=== PATIENT | male | born 1970 | race Caucasian/White ===

== ENCOUNTER 2020-06-30 11:00 | Outpatient (RCR) | payer BC, SELFPAY ==
--- NOTE | 2020-06-30 13:03 | PTOPEVAL ---
Thank you for referring Kane Driscoll to [facility]. Please review, sign, date and return this plan of care AMBERLY. I agree with and certify that the following plan of care is medically necessary. Referring Physician Date Admitting Provider: Attending Provider: Adrianna Rees, PLANT SUPERVISOR Referring Provider: *PT Outpatient Evaluation Start: 06/30/20 11:06 Freq: Status: Active Protocol: Document 06/30/20 11:06 BRIAN (Rec: 06/30/20 11:57 BRIAN [email or web address]) Therapy Assessment Status Assessment Status Assessment Status Evaluation Evaluation Information Problem Diagnosis PFS, trochanteric bursitis, sprained LCL, left knee Onset 06/25/20 Subjective Information Pt. reports that he recalls no Query Text:As Reported By Patient/ speicific injury to the knee Family and hip. He states that on/ off pain stared about 2 years ago after having to do alot of stairs. He reports that he has been home as of recently. He states that doing work around the home he has noticed increasing pain in the front of the knee. He has undergone xray and MRI which revealed sprain of the LCL. He states that he does have arthritis in the knee as well. He reports that he has been developing hip pain as of recently on the left side. He reports that his goal is to develop an exercise program to help reduce his pain. Diagnostic Tests X-Rays For This Problem Yes MRI For This Problem Yes Pain Assessment Pain Scale Pain Scale Used Numeric (1 - 10) Self Report Pain Assessment Left Hip(s) Reported Pain Level 2 Pain Description Aching Pain Frequency Continuous Lowest Pain Intensity 1 Greatest Pain Intensity 2 Left Knee(s) Reported Pain Level 3 Pain Description Aching Pain Frequency Continuous Lowest Pain Intensity 3 Greatest Pain Intensity 7 Pain Aggravating Factors Exercise/Activity,Lifting, Stair Climbing,Weight Bearing/ Standing Pain Score Pain Score 3,2: Self Report Interventio
== END 2020-06-30 14:16 | disposition home or self-care (01) ==
LOC: CHSPT 11:00
PROVIDERS: Visit Provider Nurse Practitioner Family
DX: M70.62 Trochanteric bursitis, left hip (principal); S83.422D Sprain of lateral collateral ligament of left knee, subsequent encounter; M22.2X2 Patellofemoral disorders, left knee; M17.12 Unilateral primary osteoarthritis, left knee
CPT/HCPCS: 97110; 97161

== ENCOUNTER 2020-11-10 09:56 | Outpatient (RCR) | payer BC, MEDICAID, SELFPAY ==
--- NOTE | 2020-11-10 17:39 | PTOPEVAL ---
Thank you for referring Kane Driscoll to [facility].? The patient is scheduled to be seen for therapy? __3__x/week for 12 visits. Please review, sign, date and return this plan of care AMBERLY. I agree with and certify that the following plan of care is medically necessary. Referring Physician Date Admitting Provider: Attending Provider: Adrianna Rees, CAPTION WRITER Referring Provider: *PT Outpatient Evaluation Start: 11/10/20 09:55 Freq: Status: Active Protocol: Document 11/10/20 09:58 BRIAN (Rec: 11/10/20 10:35 BRIAN [email or web address]) Therapy Assessment Status Assessment Status Assessment Status Evaluation Evaluation Information Problem Diagnosis patellofemoral syndrome of the left knee Onset 10/30/20 Subjective Information Pt. reports increase in pain Query Text:As Reported By Patient/ about 2 weeks ago. He recalls Family no incident that caused his left knee pain. He reports that most pain is located in the back of the left knee. He does get pain into the calf and into the thigh. He was given a prednisone dose pack, with has helped. He states that he still has pain in the front of the left knee. He notes pain is caused with doing steps and squatting, as well as walking. Pt. has had an MRI within the year, but does not recall the results. He states that he enjoys yard work, but cannot work for more than 1 hour outside due to pain. He reports that his knee pain will decrease with rest. He reports that his goal is to reduce his knee pain with activity. Prior Level of Function Activity Level (Last 3 Months) Occupation off work Hand Dominance Right Activity of Daily Living Ability Independent Indoor/Home Mobility Independent Community Mobility Independent Stairs Ability Independent Functional Cognition (Planning, Shopping Independent , Taking Medications) Cooking Yes Cleaning Yes Laundry Yes Shopping Yes Driving
== END 2021-02-08 23:59 | disposition home or self-care (01) ==
LOC: CHSPT 09:56
PROVIDERS: Visit Provider Nurse Practitioner Family
DX: M22.2X2 Patellofemoral disorders, left knee (principal); R26.89 Other abnormalities of gait and mobility
CPT/HCPCS: 97014; 97110; 97161; G0283

== ENCOUNTER 2021-04-06 14:53 | Outpatient (RCR) | payer OTHER, SELFPAY ==
--- NOTE | 2021-04-06 15:59 | PTOPEVAL ---
Thank you for referring Kane Driscoll to [facility].? The patient is scheduled to be seen for therapy? ____x/week for ___ weeks. Please review, sign, date and return this plan of care AMBERLY. I agree with and certify that the following plan of care is medically necessary. Referring Physician Date Admitting Provider: Attending Provider: Jamin Cullen MD Referring Provider: *PT Outpatient Evaluation Start: 04/06/21 14:55 Freq: Status: Active Protocol: Document 04/06/21 14:58 ACR (Rec: 04/06/21 15:57 ACR [email or web address]) Therapy Assessment Status Assessment Status Assessment Status Evaluation Evaluation Information Problem Diagnosis L knee arthoscopy Onset 12/31/20 Subjective Information Patient reports he got his Query Text:As Reported By Patient/ knee scoped and had his Family meniscus repaired, a quadricep release, and got some arthritis cleaned out. Everything was going fine, but he was on his hands and knees cleaning and when getting up he felt an intense pain. He called the MD and got 50ml drained from the knee and a cortisone shot which has helped him quite a bit. Patient states that he has difficulty with walking on uneven terrain, a sudden turn, sitting/standing for too long and occasionally navigating steps. Patient states his goal for therapy is to get his knee to not hurt when walking on uneven terrain and getting stronger. Prior Level of Function Activity Level (Last 3 Months) Occupation unemployed Hand Dominance Right Activity of Daily Living Ability Independent Indoor/Home Mobility Independent Community Mobility Independent Stairs Ability Independent Functional Cognition (Planning, Shopping Independent , Taking Medications) Cooking Yes Cleaning Yes Laundry Yes Shopping Yes Driving Yes Pain Assessment Timing of Pain Assessment Timing of Pain Assessment Assessment Pain Scale Pain Scale Used Numeric (1 - 10) Self Report Pain Assessment Left Knee(s) Re
--- NOTE | 2021-05-01 14:09 | PTOPEVAL ---
Thank you for referring Kane Driscoll to [facility].? The patient is scheduled to be seen for therapy? ____x/week for ___ weeks. Please review, sign, date and return this plan of care AMBERLY. I agree with and certify that the following plan of care is medically necessary. Referring Physician Date Admitting Provider: Attending Provider: Jamin Cullen MD Referring Provider: *PT Outpatient Evaluation Start: 04/06/21 14:55 Freq: Status: Active Protocol: Document 05/01/21 13:00 [facility] (Rec: 05/01/21 14:08 [facility] [email or web address]) Therapy Assessment Status Assessment Status Assessment Status Discharge Evaluation Information Problem Diagnosis L knee arthoscopy Onset 12/31/20 Additional Evaluation Detail LEFS = 35% Subjective Information patient reports he feels good Query Text:As Reported By Patient/ this date. he reports he has Family mild pain in the L knee. he reports he does start a new job this tuesday. 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 Pain Assessment Timing of Pain Assessment Timing of Pain Assessment Assessment Pain Scale Pain Scale Used Numeric (1 - 10) Self Report Pain Assessment Left Knee(s) Reported Pain Level 4 Pain Score Pain Score 4: Self Report Interventions Used Interventions Used By Clinicians Activity or ADL's,Exercise Lower Extremity Range of Motion Knee Range of Motion Left Knee Flexion Range of Motion - Active 120 Knee Extension Range of Motion - Active 0 Query Text: Lower Extremity Muscle Strength Testing Hip Strength Bilateral Hip Flexion Strength 5 Normal Knee Strength Left Knee Flexion Strength 5 Normal Knee Extension Strength 5 Normal Ankle Strength Left Ankle Dorsiflexion Strength 5 Normal Ankle Plantarflexion Strength 5 Normal Gait Assessment Gait Pattern Assessment Other Gait Observations normal step/stride length toe in stance/mechanics Stair Climbing Assessment Stair Climbing Assessment Stair Climbing Comments up and down 1 flight, reciprocal mechanics with 1 hand rail hold General Exercise General Exercises Exercise Description - nustep level 5, 10 minutes Query Text:Record Sets, Reps, - heel/toe raises x 30 Resistance, and Position - hip abduction x 30 B - hip extension x 30 B - alternating lunges x 25 - squats x 25
== END 2021-05-01 14:29 | disposition home or self-care (01) ==
LOC: CHSPT 14:53
PROVIDERS: PCP Nurse Practitioner Family; Visit Provider Internal Medicine Infectious Disease
DX: M23.52 Chronic instability of knee, left knee (principal)
CPT/HCPCS: 97014; 97110; 97140; 97161; 97530; G0283

== ENCOUNTER 2022-10-18 12:57 | Outpatient (RCR) | payer BC, SELFPAY ==
--- NOTE | 2022-10-18 13:57 | PTOPEVAL1 ---
Assessment and note entered by Evelia Gibbons DPT Evaluation Information Assessment Status Evaluation Diagnosis low back pain, L hip pain Onset 10/15/22 Subjective Information Patient reports he was having L hip pain that started at the endof the last year. He reports he got an injection about a month ago but reports he did not get relief from that. He then got a back MRI that showed an intradural mass, stenosis, and spondylosis. He reports that pain is in the low back with a pinch and reports his hip pain does radiate down the L LE with numbness about 25% of the time. Patient reports pain is worse with stair navigation, sleeping and standing for prolonged periods of time. Reported Pain Level Pain Score 1,0: Self Report Assessment PT Clinical Summary Patient is a 52 year old male who presents to PT with low back and L hip pain. Patient demonstrates decreased lumbar mobility, decreased LE flexibility and decreased LE strength impairing his ability to navigate stairs, ambulate prolonge periods and sleeping without pain. He would benefit from skilled PT to address impairments and return to PLOF. Plan of Care Interventions Electrical Stimulation,Gait Training,Hot Pack/Cold Pack,Manual Therapy,Mechanical Traction,Neuro Re- education,Patient/Caregiver Educati,Therapeutic Activities,Therapeutic Exercise PT Services Indicated Yes Treatment Frequency and 2x weekly for 12 visits Duration These treatments will address the objective and functional deficits as defined above. The patient will be advanced safely and appropriately in order for the patient to progress towards his/her prior level of function. Additional exercises will be introduced and as well as a comprehensive home exercise program upon discharge, if needed, ?to ensure carryover of functional gains achieved in the clinic. This treatment plan has been reviewed and agreement upon by the patient.
== END 2022-11-18 16:26 | disposition home or self-care (01) ==
LOC: CHSPT 12:57
DX: M47.816 Spondylosis without myelopathy or radiculopathy, lumbar region (principal); M99.63 Osseous and subluxation stenosis of intervertebral foramina of lumbar region
CPT/HCPCS: 97014; 97110; 97112; 97161; G0283

== ENCOUNTER 2024-02-13 13:49 | Outpatient (RCR) | payer BC, SELFPAY ==
--- NOTE | 2024-02-13 14:46 | PTOPEVAL1 ---
Assessment and note entered by [facility] Evaluation Information Assessment Status Evaluation Diagnosis leg weakness R29.898, ICD-10 Condition Codes (PT) Weakness R53.1 Onset 12/03/23 Subjective Information Pt. reports that mid November he was in [place] and was in the shower and felt a pinch in his hip. He reports that pain worsened and went to urgent care . He reports that he returned home, but pain got more intense and went back to the ER. He states that several weeks after the initial injury, he felt another pop in the front of the right thigh. He reports that he went to the hospital via ambulance, and was admitted. He reports that he was then sent to his back doctor and underwent a surgery to remove a mass from his spine on 12/21/23 . He reports that he was hospitalized for 1 week after surgery. He reports that shortly after returning home his incision had busted open and he was leaking spinal fluid. He reports that he underwent a second surgery to repair the original incision. He states that he has had right leg weakness since surgery and constant shooting pain in the right upper thigh. He states that enjoys yard work, but cannot cut his lawn fully due to feeling unsteady on his right leg. He reports that he has a sense that the right leg is going to give out. He states that his most difficult terrain is grass and navigating steps. He cannot lead up steps with the right leg. He states that he can only stand about 5 minutes before he gets increased pain in the right leg. He states that he cannot sleep efficiently due to pain. He reports that his goal is to reduce his pain and improve the strength in the right leg. Reported Pain Level Pain Score 3: Self Report Assessment PT Clinical Summary Pt. is a 54 year old male who enters the clinic with low back pain and developed right l.e. weakness post surgically. He presents with indication of muscle strain to the right thigh, in addition to lumbar radiculopathy affecting the right l.e. He currently presents with impaired gait, impaired l.e. strength, pain, impaired flexibility and functional decline. Continued skilled PT is indicated in order to improve these areas to allow the pt. to be able to improve IADL performance. Plan of Care Interventions Deepthi
--- NOTE | 2024-02-13 15:04 | OPREHPOC ---
Outpatient Therapy Plan of Care This is a Multidisciplinary Plan of Care that may contain components documented by all disciplines (PT, OT, and ST.) PT Problem 1 PT Problem #1 Knowledge Deficit PT Goal 1 Goal Pt. will be independent with a HEP addressing l.e. strength and flexibility Target Visit 2 PT Problem 2 PT Problem #2 Impaired Gait PT Goal 1 Goal Pt. will ambulates with equal right and left stance time for duration of 6 minutes with 100% accuracy over a distance of 1000' or greater. Target Visit 10 PT Problem 3 PT Problem #3 Impaired Strength PT Goal 1 Goal Pt. will improve gross right l.e. strength to 4/5 or greater to improve gait mechanics Pt. will be able to navigate 6-8 steps with a reciprocal pattern indicating improve right l.e. strength PT Problem 4 PT Problem #4 Impaired Functional Mobil PT Goal 1 Goal Pt. will present with less than 35% limitation on the LEFS indicating significant functional improvement. Target Visit 10
--- NOTE | 2024-02-20 17:15 | PCPTNOTE ---
I reviewed the License Pending Therapist's documentation and agree with the findings.
--- NOTE | 2024-02-22 07:14 | PCPTNOTE ---
Pt cancelled session due to illness.
--- NOTE | 2024-02-27 17:50 | PCPTNOTE ---
I reviewed the License Pending Therapist's documentation and agree with the findings.
== END 2024-03-14 14:54 | disposition home or self-care (01) ==
LOC: CHSPT 13:49
PROVIDERS: PCP Family Medicine
DX: R29.898 Other symptoms and signs involving the musculoskeletal system (principal)
CPT/HCPCS: 97014; 97110; 97112; 97140; 97150; 97161; 97530; G0283

== ENCOUNTER 2024-09-24 10:24 | Outpatient (RCR) | payer OTHER, SELFPAY ==
--- NOTE | 2024-09-24 11:22 | OPREHPOC ---
Outpatient Therapy Plan of Care This is a Multidisciplinary Plan of Care that may contain components documented by all disciplines (PT, OT, and ST.) PT Problem 1 PT Problem #1 Knowledge Deficit PT Goal 1 Goal / Goal Update Independent with HEP. Target Visit 2 PT Problem 2 PT Problem #2 Impaired Strength PT Goal 1 Goal / Goal Update Pt to improve gross LE strength to 5/5. Pt to improve gross LE strength to 5/5 for improved dynamic stabilization of the knee. Target Visit 12 PT Problem 3 PT Problem #3 Impaired Functional Mobility PT Goal 1 Goal / Goal Update Pt to improve 6MWT to 1400ft for improved endurance and gait speed. Pt to report being able to stand for 20 minutes before needing a rest break. Pt to improve LEFS score to 20%. Target Visit 12
--- NOTE | 2024-09-24 11:22 | PTOPEVAL1 ---
Assessment and note entered by Carlie Nolan, PT Evaluation Information Assessment Status Evaluation ICD-10 Condition Codes (PT) Pain in right knee M25.561,Difficulty Walking R26. 2,Weakness R53.1 Other ICD-10 Condition Codes ( M17.11 PT) Onset 11/23/2023 Subjective Information Pt reports onset of knee pain last November. 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 Pain was previously 9/10 but is now at 2 /10 after getting the shot. Going up stairs is more painful than going down. Reports he got an MRI that shows cartilage loss. 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 He notes bilateral numbness and tingling (R>L) and states he's unable to stand for more than 10 minutes before needing to sit. Takes Lyrica for nerve pain which helps take the edge off when at rest however his nerve pain is still aggravated by physical activity/ADLs. Reported Pain Level Pain Score 2: Self Report Assessment PT Clinical Summary Mr. Driscoll is a 54 yo male presenting to physical therapy with R knee pain. 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 He demonstrates generalized weakness of the R leg as well as pain with inferior patellar glides and overall functional decline due to knee pain combined with his history of lower back pain. He can benefit from skilled physical therapy intervention to improve on these deficits and return to PLOF. Plan of Care Interventions Electrical Stimulation,Gait Training,Hot Pack/Cold Pack,Intermittent Compression Pump,Manual Therapy ,Neuro Re-education,Patient/Caregiver Education, Therapeutic Activities,Therapeutic Exercise,Self- Care/Home Management PT Services Indicated Yes Treatment Frequency and 2x/week for 12 visits Duration These treatments will address the objective and functional deficits as defined above. The patient will be advanced safely and appropriately in order for the patient to progress towards his/her prior level of function. Additional exercises will be introduced and as well as a comprehensive home exercise program upon discharge, if needed, ?to ensure carryover of functional gains achieved in the clinic. This treatment plan has been reviewed and agreement upon by the patient.
--- NOTE | 2024-10-01 09:50 | PCPTNOTE ---
Cancelled session. Going to sit with his mother in [place].
--- NOTE | 2024-10-22 14:53 | OPREHPOC ---
Outpatient Therapy Plan of Care This is a Multidisciplinary Plan of Care that may contain components documented by all disciplines (PT, OT, and ST.) PT Problem 1 PT Problem #1 Knowledge Deficit PT Goal 1 Goal / Goal Update Independent with HEP. Target Visit 2 Progress Met PT Problem 2 PT Problem #2 Impaired Strength PT Goal 1 Goal / Goal Update Pt to improve gross LE strength to 5/5. Pt to improve gross LE strength to 5/5 for improved dynamic stabilization of the knee. Target Visit 12 Progress Met PT Problem 3 PT Problem #3 Impaired Functional Mobility PT Goal 1 Goal / Goal Update Pt to improve 6MWT to 1400ft for improved endurance and gait speed. -not met Pt to report being able to stand for 20 minutes before needing a rest break. -met Pt to improve LEFS score to 20%. -not met Target Visit 12 Progress Partially Met
--- NOTE | 2024-10-22 14:54 | PTOPDC ---
Assessment and note entered by Carlie Nolan, PT Evaluation Information Assessment Status Discharge ICD-10 Condition Codes (PT) Pain in right knee M25.561,Difficulty Walking R26. 2,Weakness R53.1 Other ICD-10 Condition Codes ( M17.11 PT) Onset 11/23/2023 Subjective Information Kane feels like his knee is stronger since beginning therapy and that he can walk further without difficulty. He does still have sharp pain in the knee when walking up ramps and climbing steps, as well as nerve pain in the R thigh. He notes that standing still continues to be the most aggravating and he can only stand still for about 10 minutes before needing to start walking. He states he can walk for at least an hour before onset of knee pain. Overall despite having pain, Kane has been independent with his HEP and feels well enough to discharge from therapy. Reported Pain Level Pain Score 0: Self Report Assessment PT Clinical Summary Mr. Driscoll has attended 8 total skilled PT visits addressing R knee pain. Since beginning therapy he has made good improvements in his strength and functional mobility. He still notes onset of knee pain when standing still for prolonged periods and climbing ramps or stairs, but overall he feels this is manageable on his own with his HEP. He has met or partially met all therapeutic goals set for him and therefore skilled PT intervention is no longer indicated. Plan of Care PT Services Indicated No
== END 2024-10-22 20:00 | disposition home or self-care (01) ==
LOC: CHSPT 10:24
PROVIDERS: PCP Family Medicine; Visit Provider Physician Assistant
DX: M17.11 Unilateral primary osteoarthritis, right knee (principal)
CPT/HCPCS: 97110; 97112; 97150; 97161; 97530

== ENCOUNTER 2024-11-22 10:58 | Outpatient (RCR) | payer OTHER, SELFPAY ==
--- NOTE | 2024-11-22 11:49 | OPREHPOC ---
Outpatient Therapy Plan of Care This is a Multidisciplinary Plan of Care that may contain components documented by all disciplines (PT, OT, and ST.) PT Problem 1 PT Problem #1 Knowledge Deficit PT Goal 1 Goal / Goal Update independent and compliant with HEP Target Visit 6 PT Problem 2 PT Problem #2 Pain PT Goal 1 Goal / Goal Update no more than 1/10 pain at worst in the L shoulder Target Visit 12 PT Problem 3 PT Problem #3 Impaired Strength PT Goal 1 Goal / Goal Update 5/5 L shoulder flex 5/5 L shoulder ER Target Visit 12 PT Problem 4 PT Problem #4 Impaired Functional Mobility PT Goal 1 Goal / Goal Update quick dash to display less than 10% functional deficits patient to perform driving without pain patient to raise 10lbs to shoulder level shelf x10 reps with L UE without pain or compensation Target Visit 12
--- NOTE | 2024-11-22 11:49 | PTOPEVAL1 ---
Assessment and note entered by JT File, PT Evaluation Information Assessment Status Evaluation Diagnosis L shoulder bursitis ICD-10 Condition Codes (PT) Pain in left shoulder M25.512 Other ICD-10 Condition Codes ( M75.51 PT) Onset 11/20/24 Subjective Information patient reports he is having pain in his L shoulder. he reports it feels like something is pinching in the shoulder. he reports it is not constant, but activities such as driving and holding the arm in a position for extended time increase his pain. he reports less pain with the L arm at his side. he reports he has had xrays that were negative. he reports he has been having pain for 1-2 months. he reports no NTB in the L shoulder or UE. Reported Pain Level Pain Score 2: Self Report Assessment PT Clinical Summary mr. lee is a pleasant 54 yo man who presents to skilled PT services for pain in the L shoulder. he presents today with signs and symptoms consistent with RTC tendonitis and secondary impingement syndrome. he displays decreased L shoulder strength, positive special testing, and deficits in functional activity performance. continued skilled PT is indicated to improve his objective/functional deficits and progress towards a return to his prior level functional activity performance/quality of life. Plan of Care Interventions Electrical Stimulation,Hot Pack/Cold Pack,Manual Therapy,Neuro Re-education,Patient/Caregiver Education,Therapeutic Activities,Therapeutic Exercise PT Services Indicated Yes Treatment Frequency and 3x weekly for 12 visits Duration These treatments will address the objective and functional deficits as defined above. The patient will be advanced safely and appropriately in order for the patient to progress towards his/her prior level of function. Additional exercises will be introduced and as well as a comprehensive home exercise program upon discharge, if needed, ?to ensure carryover of functional gains achieved in the clinic. This treatment plan has been reviewed and agreement upon by the patient.
--- NOTE | 2024-12-11 14:24 | OPREHPOC ---
Outpatient Therapy Plan of Care This is a Multidisciplinary Plan of Care that may contain components documented by all disciplines (PT, OT, and ST.) PT Problem 1 PT Problem #1 Knowledge Deficit PT Goal 1 Goal / Goal Update independent and compliant with HEP Target Visit 6 Progress Partially Met PT Problem 2 PT Problem #2 Pain PT Goal 1 Goal / Goal Update no more than 1/10 pain at worst in the L shoulder Target Visit 12 Progress Not Met PT Problem 3 PT Problem #3 Impaired Strength PT Goal 1 Goal / Goal Update 5/5 L shoulder flex 5/5 L shoulder ER Target Visit 12 Progress Not Met PT Problem 4 PT Problem #4 Impaired Functional Mobility PT Goal 1 Goal / Goal Update quick dash to display less than 10% functional deficits patient to perform driving without pain patient to raise 10lbs to shoulder level shelf x10 reps with L UE without pain or compensation Target Visit 12 Progress Not Met
--- NOTE | 2024-12-11 14:24 | PTOPREEVAL ---
Assessment and note entered by JT File, PT Evaluation Information Assessment Status Re-evaluation Diagnosis L shoulder bursitis ICD-10 Condition Codes (PT) Pain in left shoulder M25.512 Other ICD-10 Condition Codes ( M75.51 PT) Onset 11/20/24 Subjective Information patient reports he is hurting today. he reports he has been doing a lot of yard work the past few days, and this has flared up his shoulder pain. he reports since starting PT, he feels it has gotten better some when he is rested. he reports he also has less pain with light activities, but heavier activities still create increased pain to the same level as his initial evaluation. he reports driving still does bother the L arm at times. Reported Pain Level Pain Score 5: Self Report Assessment PT Clinical Summary mr. lee presents to skilled PT for his 8th skilled PT visit. he presents today with increased pain from increased activity at home. he displays a slight worse score on the quick dash, but improved shoulder IR/ER strength, and improved IR/ ER rom. patient has made progress towards goals, but lacks achievement of goals as of this date. despite his increased pain and symptoms today, patient would benefit from continued skilled PT to focus on his objective/functional deficits to return to his prior level functional activity performance without limitations. Plan of Care Interventions Electrical Stimulation,Hot Pack/Cold Pack,Manual Therapy,Neuro Re-education,Patient/Caregiver Education,Therapeutic Activities,Therapeutic Exercise PT Services Indicated Yes Treatment Frequency and continue skilled PT 2x weekly for 4 more visits Duration These treatments will address the objective and functional deficits as defined above. The patient will be advanced safely and appropriately in order for the patient to progress towards his/her prior level of function. Additional exercises will be introduced and as well as a comprehensive home exercise program upon discharge, if needed, ?to ensure carryover of functional gains achieved in the clinic. This treatment plan has been reviewed and agreement upon by the patient.
== END 2025-02-20 23:59 | disposition home or self-care (01) ==
LOC: CHSPT 10:58
PROVIDERS: PCP Family Medicine
DX: M75.51 Bursitis of right shoulder (principal)
CPT/HCPCS: 95992; 97014; 97110; 97112; 97140; 97150; 97161; G0283

== ENCOUNTER 2025-02-05 13:03 | Outpatient (RCR) | payer OTHER, SELFPAY ==
--- NOTE | 2025-02-05 14:39 | PTOPEVAL1 ---
Assessment and note entered by Evelia Wu DPT Evaluation Information Assessment Status Evaluation Diagnosis low back pain ICD-10 Condition Codes (PT) Pain in low back M54.50 Onset 01/22/25 Subjective Information Patient reports he has had chronic low back pain. he reports he got an injection in December with little relief. he reports his neurosurgeon wants to have another MRI done as well as more PT. at this time he does not have the MRI scheduled or a follow up with MD. he reports in feels that pain in a pinching in the low back. he reports that certain movements increased pain and was unpredictable. he reports pain will radiate to the thigh. he reports difficulty with bending to pic up objects, doing house work for >30 minutes, and twisting. He reports he has not continued with HEP from prior PT. Reported Pain Level Pain Score 2: Self Report Assessment PT Clinical Summary Mr. Driscoll is a 55 year old male who presents to PT with low back pain. He demonstrates decreased R LE strength, impaired posture and gait and decreased B LE flexibility R>L impairing his ability to bend to pick up man objects, stand for >30 minutes to complete house hold tasks and twisting. He would benefit from skilled PT to address impairments and return to PLOF. Plan of Care Interventions Electrical Stimulation,Gait Training,Hot Pack/Cold Pack,Manual Therapy,Mechanical Traction,Neuro Re- education,Patient/Caregiver Education,Therapeutic Activities,Therapeutic Exercise PT Services Indicated Yes Treatment Frequency and 2x weekly for 10 visits Duration These treatments will address the objective and functional deficits as defined above. The patient will be advanced safely and appropriately in order for the patient to progress towards his/her prior level of function. Additional exercises will be introduced and as well as a comprehensive home exercise program upon discharge, if needed, ?to ensure carryover of functional gains achieved in the clinic. This treatment plan has been reviewed and agreement upon by the patient.
--- NOTE | 2025-03-06 11:22 | OPREHPOC ---
Outpatient Therapy Plan of Care This is a Multidisciplinary Plan of Care that may contain components documented by all disciplines (PT, OT, and ST.) PT Problem 1 PT Problem #1 Knowledge Deficit PT Goal 1 Goal / Goal Update Patient to demonstrate independence with HEP Target Visit 5 Progress Met PT Problem 2 PT Problem #2 Pain PT Goal 1 Goal / Goal Update Patient reports highest pain at 2/10 when completing household tasks Target Visit 10 Progress Not Met PT Problem 3 PT Problem #3 Impaired Functional Mobility PT Goal 1 Goal / Goal Update 1. Patient to report ability to be able to orange picker object off of the ground without increase in pain -not met 2. Patient to improve Back Index by 20% -not met 3. Patient to report ability to stand for >30 minutes to complete house hold tasks -not met Target Visit 10 Progress Not Met PT Problem 4 PT Problem #4 Impaired Strength PT Goal 1 Goal / Goal Update Patient to improve B LE strength to 4+/5 to improve ability to complete yard work and ambulate with equal weight bearing during stance time -not met Target Visit 10 Progress Not Met
--- NOTE | 2025-03-06 11:22 | PTOPDC ---
Assessment and note entered by Carlie Nolan, PT Evaluation Information Assessment Status Discharge Diagnosis low back pain ICD-10 Condition Codes (PT) Pain in low back M54.50 Onset 01/22/25 Subjective Information Kane presents for his 10 skilled PT visit today. He reports he's in a lot of pain today [place] He reports his watch told him he walked about 8 miles in total yesterday. Overall he feels like his low back is still as painful as it was before he started therapy, and while PT has helped for previous pains in his shoulder and knee, it hasn't helped very much for his low back. He reports he' s not able to stand for more than 10 minutes to complete household tasks, and he also still experiences increased pain with bending forward to shrimp picker objects from the ground. He plans to return to the doctor for further assessment. Reported Pain Level Pain Score 7: Self Report Assessment PT Clinical Summary Mr. Driscoll has attended 10 skilled PT visits for chronic low back pain with minimal benefit despite independence with HEP. He notes his pain is still as severe as it was before starting therapy and he still experiences difficulty with performing daily household tasks due to pain. He has not met any therapeutic goals set for him and due to lack of progress from skilled physical therapy we recommend pt return to his MD for further evaluation and imaging as appropriate. Plan of Care PT Services Indicated No
== END 2025-03-06 14:19 | disposition home or self-care (01) ==
LOC: CHSPT 13:03
PROVIDERS: PCP Family Medicine
DX: M54.50 Low back pain, unspecified (principal)
CPT/HCPCS: 97014; 97110; 97140; 97161; 97530; G0283